=== PATIENT | female | born 1955 | race Caucasian/White ===

== ENCOUNTER 2020-12-17 22:21 | Emergency (ER) | payer OTHER ==
[~2020-12-17] VITALS: Ht 152.4 cm; Wt 71.7 kg
[~2020-12-17 22:21] MED LIST: ASPIR 8181 M1 PO; EFFIENT5 MG PO; KLOR-CON 1010 MEQ PO; LASIX 20 MG TAB20 MG PO; LEVOTHYROXIN0.025 MG PO; LEXAPRO 10 MG T10 M2 PO; LIPITOR10 MG PO; MEDROLDOSEPACK PO; NORCO 5-325 TA1 EACH PO; OMEPRAZOLE 20 M20 M1 PO; XANAX 0.25 MG0.25 MG PO
[2020-12-18] MEDS ORDERED: PERCOCET 7.5-31 EAC1 PO (00:58)
[2020-12-18] MEDS ORDERED: MEDROLDOSEPACK PO (00:58)
[2020-12-18 01:28] VITALS: BP 160/66
== END 2020-12-18 01:28 | disposition home or self-care (01) ==
LOC: M.ERS 22:21
DX: M25.431 Effusion, right wrist (principal); I25.2 Old myocardial infarction; I10 Essential (primary) hypertension; E11.9 Type 2 diabetes mellitus without complications; Z95.5 Presence of coronary angioplasty implant and graft; Z79.899 Other long term (current) drug therapy; Z88.0 Allergy status to penicillin

== ENCOUNTER 2021-03-27 13:09 | Emergency (ER) | payer OTHER ==
[~2021-03-27] VITALS: Ht 154.9 cm; Wt 71.7 kg
[~2021-03-27 13:09] MED LIST changes: +PERCOCET 7.5-31 EAC1 PO
[2021-03-27] MEDS ORDERED: PLAQUENIL200 MG PO (13:35)
[2021-03-27 15:17] VITALS: BP 129/54
--- NOTE | 2021-03-29 10:13 | EKG ---
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
== END 2021-03-27 15:25 | disposition left against medical advice (07) ==
LOC: M.ERS 13:09
DX: R07.89 Other chest pain (principal); M25.442 Effusion, left hand; Z53.21 Procedure and treatment not carried out due to patient leaving prior to being seen by health care provider